=== PATIENT | female | born 1955 | race Caucasian/White ===

== ENCOUNTER → 2016-09-13 | Day surgery (SDC) | payer OTHER ==
[~2016-09-13] MED LIST: ALBUTEROL MININEB NEB; CELEXA PO; CLARITIN10 M3 DOB; DILTIAZEM 24HR120 MG PO; ELIQUIS5 MG PO; EXFORGE PO; HYDROCHLOROTH12.5 MG PO; IBUPROFEN PO; LASIX PO; LORTAB; MOBIC PO; NEXIUM PO; NORCO 5/325 TAB1 TAB PO; PROTONIX PO; SYNTHROID125 PO; ZEBETA5 MG PO
--- NOTE | ~2016-09-13 | EKG ---
PATIENT: KARINA BROWER UNIT #: [id number] Ventricular Rate: 70 BPM Atrial Rate: 70 BPM P-R Interval: 178 ms QRS Duration: 88 ms Q-T Interval: 416 ms QTC Calculation(Bezet): 449 ms P [place]: 54 degrees Calculated R [place]: -27 degrees Calculated T [place]: 34 degrees Diagnosis Line: Sinus rhythm with Fusion complexes and Premature Diagnosis Line: atrial complexes with Aberrant conduction Diagnosis Line: Nonspecific T wave abnormality Diagnosis Line: Abnormal ECG Diagnosis Line: No previous ECGs available Diagnosis Line: Confirmed by JUAN CARLOS NOVOA MD ([id number]) on Diagnosis Line: 09/13/2016 12:01:09 PM INTERPRETING MD: BRIGHT CONTI
--- NOTE | ~2016-09-13 | CR7 ---
[facility] A Service of [facility] RADIOLOGY TEXT RESULTS PATIENT: KARINA BROWER LOCATION: [facility] : 59 UNIT #: [id number] AGE: [address]: Dwight Gupta III, MD SEX: F ORDER DR: [id number] [facility] [address] [place], [place] [address] [id number] O MR#: [id number] Acc #: [id number] NAME: KARINA BROWER : 1955 SEX: F STUDY DATE/TIME: 09/13/2016 12:01 UNIT: [facility] ROOM: STUDY DESCRIPTION: CR Abdomen Single AP View Attending Physician: Dwight Gupta III, M.D. Ordering Physician: Dwight Gupta III, M.D. Primary Care Physician: Garcia Harry A.P.R.N. MEDICAL IMAGING REPORT This report is preliminary unless electronic signature is present EXAM Abdomen, 09/13/2016 12:01 hours HISTORY 60-year-old with morbid obesity, patient is postop revision of Lap-Band today COMPARISON 06/17/2008 FINDINGS A single supine view of the abdomen is limited. The left flank and the pelvis are excluded. The patient has a Lap-Band present. The band is now oriented at 51 degrees from vertical. Previously oriented at 85 degrees. Radiopaque tubing courses inferiorly to a port overlying the left aspect of the L3 transverse process. Bowel gas pattern is remarkable only for some contrast material within the appendix and colonic diverticula. IMPRESSION 1. Interval revision of Lap-Band now oriented at 51 degrees from vertical, previously 85 degrees on 06/17/2008. Radiopaque tubing courses inferiorly to a port overlying the left L3 transverse process. 2. Nonobstructive bowel gas pattern. There is retained oral contrast material within the appendix and scattered colonic diverticula in the descending colon and rectosigmoid colon. Dictated by... Key Savage M.D. THIS IS AN ELECTRONICALLY VERIFIED REPORT Key Savage M.D. at 09/13/2016 2:32 PM [facility]/saud [facility] A Service of [facility] RADIOLOGY TEXT RESULTS PATIENT: KARINA BROWER LOCATION: [facility] #: [id number] : 59 UNIT #: [id number] AGE: [address]: Dwight Gupta III, MD SEX: F ORDER DR: TD: 09/13/2016 13:57 JOB #: [id number] MEDICAL IMAGING REPORT Page 1 of 1 COPY
--- NOTE | ~2016-09-13 | OR ---
Unit #: [id number] #: [id number] Patient: KARINA BROWER [id number] [address] [place], [place] [address] [id number] O MR#: [id number] NAME: KARINA BROWER ROOM: Date of Procedure: 09/13/2016 Admission Date: 09/13/2016 Surgeon: Dwight Gupta III, M.D. : 1955 Attending Physician: Dwight Gupta III, M.D. Primary Care Physician: Garcia Harry A.P.R.N. OPERATIVE REPORT PREOPERATIVE DIAGNOSES 1. Slipped gastric band. 2. Anterior paraesophageal hernia. POSTOPERATIVE DIAGNOSES 1. Slipped gastric band. 2. Anterior paraesophageal hernia. PROCEDURE PERFORMED Laparoscopic revision of adjustable gastric band and laparoscopic repair of paraesophageal hernia. CONSULTANT DIETITIAN Dr. Mitchel Cueva. SPECIMENS None. COMPLICATIONS None apparent. ESTIMATED BLOOD LOSS Minimal. ANESTHESIA General endotracheal tube anesthesia. INDICATIONS FOR PROCEDURE This is a 60-year-old lady, who has done fairly well in terms of weight loss from her gastric band. She has had some recent vomiting and this failed to notify me of this. She has undergone workup, which included imaging that was consistent with a slip. She is here today for revision. DESCRIPTION OF PROCEDURE After consent was obtained, the patient was brought to the operating room and placed in the supine position. General anesthetic was administered and her abdomen was prepped and draped in standard surgical fashion. I made a 1 cm incision just medial to where her main port incision was. I used a Visiport to enter into the peritoneal cavity without any difficulty. CO2 pneumoperitoneum was then established. Next, I placed a 5-mm Davion liver retractor in the subxiphoid region and a 5-mm port Unit #: [id number] #: [id number] Patient: KARINA BROWER was placed in the right upper quadrant and the left lateral subcostal region. A 10-mm port was placed in the left upper quadrant. I began by following the band tubing up toward the stomach. She had some encapsulation of the band around the stomach. I was able to see through the fibrinous capsule and scored the exterior of the band with the Bovie cautery. Once I was able to mobilize the buckle of the band, I then freed it up as much as possible. I then unbuckled the band. We then divided the band tubing close to the connector and removed this through the original port site. A 2-0 silk suture was passed on the port into the tubing. This allowed me to unbuckle the band and leave the port in place. Once the band was unbuckled, I was able to remove it from around the stomach. I then turned my attention to the hiatus. I dissected out both the right and left crura and identified an anterior paraesophageal hernia that was moderate in size. I removed the hernia sac as well. I then reapproximated the crura with 2 interrupted 0 Ethibond [id number] sutures. I then created a new tunnel using the pars flaccida technique with a blunt grasper that exited at the angle of His. Once this tunnel was safely created, I repositioned the band around the top part of the stomach and buckled it anteriorly. I took the lateral fundus and it was plicated to the proximal pouch with 2 interrupted 0 Ethibond sutures. A third anterior imbricating stitch was used to gather the excess anterior stomach. I had excellent hemostasis and all needle, sponge, and instrument counts were correct x2. I removed all the trocars and released the pneumoperitoneum. I attached the 2 ends of the tubing back together at the site of the connector. We injected all port sites with 0.25% plain Marcaine and I reapproximated the skin edges with interrupted 4-0 Vicryl subcuticular suture. Steri-Strips were then applied. The patient tolerated the procedure without any problems and returned to the recovery room in stable condition. Dictated by... Dwight Gupta III, M.D. VCL/[place] TD: 09/14/2016 05:31 JOB #: [id number] CC: Garcia Harry A.P.R.N. OPERATIVE REPORT Page 1 of 1 X Dwight Gupta III, MD PROCEDURE OPERATIVE NOTE
[2016-09-13 08:34] LABS: CALCIUM SERUM 8.9 mg/dL (8.4-10.2); CREATININE SERUM 0.5 mg/dL (0.6-1.4); GLOM FILT RATE Estimated 106.7 mL/min (>60); POTASSIUM 3.1 mmol/L (3.5-5.1)
== END | disposition home or self-care (01) ==
LOC: CSUR 07:08
PROVIDERS: Surgery
DX: K95.09 Other complications of gastric band procedure (principal); K44.9 Diaphragmatic hernia without obstruction or gangrene; J45.909 Unspecified asthma, uncomplicated; M19.90 Unspecified osteoarthritis, unspecified site; K21.9 Gastro-esophageal reflux disease without esophagitis; I10 Essential (primary) hypertension; E03.9 Hypothyroidism, unspecified; Z88.8 Allergy status to other drugs, medicaments and biological substances; Z79.01 Long term (current) use of anticoagulants; Z79.899 Other long term (current) drug therapy; Z90.49 Acquired absence of other specified parts of digestive tract; Y83.2 Surgical operation with anastomosis, bypass or graft as the cause of abnormal reaction of the patient, or of later complication, without mention of misadventure at the time of the procedure
CPT/HCPCS: 74000; 80048; 93005; J0690; J1650; J2250; J3010